=== PATIENT | female | born 1955 ===

== ENCOUNTER 2017-10-07 08:30 | Inpatient (IN) | payer OTHER ==
[2017-09-29 11:08] LABS: APPEARANCE,URINE CLEAR; BILIRUBIN, URINE NEGATIVE (NEGATIVE); COLOR,URINE PALE YELLOW; GLUCOSE, URINE (UA) NEGATIVE (NEGATIVE); KETONES,URINE NEGATIVE (NEGATIVE); LEUKOCYTE ESTERASE ,URINE 3+ (NEGATIVE); NITRITE,URINE NEGATIVE (NEGATIVE); PH,URINE 7 (4.5-8.0); PROTEIN,URINE NEGATIVE (NEGATIVE); UROBILINOGEN,URINE NORMAL MG/DL (0.0-1.0)
[2017-09-29 11:13] LABS: BASOPHILS % (AUTO) 1.5 % (0.0-2.0); EOSINOPHILS % (AUTO) 1.7 % (0.0-3.0); HEMATOCRIT 42.6 % (37.0-47.0); HEMOGLOBIN 13.5 G/DL (12.0-16.0); MEAN CORPUSCULAR VOLUME 88 FL (80-99); MONOCYTES % (AUTO) 7.5 % (1.0-10.0); NEUTROPHILS % (AUTO) 52.4 % (45.0-75.0); PLATELET COUNT 388 K/UL (150-450); RED BLOOD COUNT 4.85 M/UL (4.20-5.40); RED CELL DISTRIBUTION WIDTH 11.8 % (11.6-14.8); WHITE BLOOD COUNT 6.6 K/UL (4.8-10.8)
[2017-09-29 11:29] LABS: INR 0.9 (0.9-1.1)
[2017-09-29 11:35] LABS: ALANINE AMINOTRANSFERASE 32 U/L (12-78); ALBUMIN 4.2 G/DL (3.4-5.0); ALKALINE PHOSPHATASE 71 U/L (46-116); ANION GAP 9 mmol/L (5-15); ASPARTATE AMINO TRANSFERASE 25 U/L (15-37); BILIRUBIN,TOTAL 0.3 MG/DL (0.2-1.0); BLOOD UREA NITROGEN 13 mg/dL (7-18); CALCIUM 9.1 MG/DL (8.5-10.1); CARBON DIOXIDE 28 MMOL/L (21-32); CHLORIDE 103 MMOL/L (98-107); CREATININE 0.8 MG/DL (0.55-1.30); PHOSPHORUS 3.6 MG/DL (2.5-4.9); POTASSIUM 3.8 MMOL/L (3.5-5.1); SODIUM 140 MMOL/L (136-145)
--- NOTE | 2017-09-29 16:41 | Diagnostic Imaging Report ---
Indication: Cough Technique: 2 views of the chest Comparison: None Findings: Lungs and pleural spaces are clear. Heart size is normal. The bones are unremarkable Impression: Negative
[~2017-10-07] VITALS: Ht 162.6 cm; Wt 78.5 kg
[2017-10-07] VITALS (12 sets, daily range): BP systolic 87–124; BP diastolic 40–77
[~2017-10-07 08:30] MED LIST: AMBIEN10 MG ORAL; CALCIUM500 M3 PO; LEXAPRO10 MG ORAL; PERCOCET 10-321 EACH ORAL; ceFAZolin sod 1 GM in D5W 55 ML IV SCH; ceFAZolin sod 2 GM in D5W 110 ML IVPB ONE
[2017-10-07] MEDS ORDERED: Glycopyrrolate 0.2mg/ml 1ml Vial ONE (10:37)
[2017-10-07] MEDS ORDERED: fentaNYL 100 mcg/2 mL IV ONE ×2 (10:55→14:37)
[2017-10-07] MEDS ORDERED: Midazolam 2mg/2ml Inj ONE (10:56)
[2017-10-07] MEDS ORDERED: Lidocaine 1% MPF 10mg/ml 5ml ONE (11:04)
[2017-10-07] MEDS ORDERED: Zemuron 50mg/5ml Inj IV ONE (11:07)
--- NOTE | 2017-10-07 13:17 | Pre-Procedure Note/Attestation ---
Pre-Procedure Note/Attestation Complete Prior to Procedure Procedure Narrative: L45 R laminectomy/discectomy Indications for Procedure Pre-Operative Diagnosis: l45 hnp with RLE radiculopathy Attestation I attest that I discussed the nature of the procedure; its benefits; risks and complications; and alternatives (and the risks and benefits of such alternatives ), prior to the procedure, with the patient (or the patient's legal agricultural sales representative). I attest that, if there was a reasonable possibility of needing a blood transfusion, the patient (or the patient's legal agricultural sales representative) was given the [facility] standardized written summary, pursuant to the [place] Blood Safety Act ([place] Health and Safety Code # 1645, as amended). I attest that I re-evaluated the patient just prior to the surgery and that there has been no change in the patient's H&P, except as documented below: Renan Rios MD Oct 07, 2017 13:17
[2017-10-07] MEDS ORDERED: EPINEPHrine 1mg/1ml Amp ONE (13:42)
[2017-10-07] MEDS ORDERED: Thrombin 5000 units TOPIC ONE (13:42)
[2017-10-07] MEDS ORDERED: Vancomycin 1gm inj IVPB ONE (13:42)
[2017-10-07] MEDS ORDERED: Thrombin 5000 units spray kit TOPIC ONE (13:42)
[2017-10-07] MEDS ORDERED: Gelfoam Absorbable 1gm powder pkt TOPIC ONE (13:43)
[2017-10-07] MEDS ORDERED: Bupivacaine 0.5% Inj 30 ml vial INJ ONE (13:43)
[2017-10-07] MEDS ORDERED: Bacitracin 50000 Units Vial ONE (13:43)
[2017-10-07] MEDS ORDERED: Gelfoam Size TOPIC ONE (13:43)
[2017-10-07] MEDS ORDERED: LR 1000ml ONE (14:00)
[2017-10-07] MEDS ORDERED: Sterile Water Irrig 1000ml IRRIG ONE (14:00)
[2017-10-07] MEDS ORDERED: NS Irrig 1000ml ONE (14:00)
[2017-10-07] MEDS ORDERED: Acetaminophen (Non formulary) 100 ML IV ONE (14:45)
[2017-10-07] MEDS ORDERED: LR 1000ml 1,000 ML IVLG SCH (15:04)
--- NOTE | 2017-10-07 15:04 | Anethesia Preoperative Eval ---
Anesthesia Pre-op PMH/ROS General Date of Evaluation: Oct 07, 2017 Time of Evaluation: 13:50 Anesthesiologist: Lisa ASA Score: ASA 2 Mallampati Score Class I : Soft palate, uvula, fauces, pillars visible Class II: Soft palate, uvula, fauces visible Class III: Soft palate, base of uvula visible Class IV: Only hard plate visible Mallampati Classification: Class II Surgeon: Gabriel Diagnosis: Lumbar radiculopathy Surgical Procedure: L4-L5 decompression Anesthesia History: none Family History: no anesthesia problems Allergies: Coded Allergies: MORPHINE (Verified Allergy, Severe, 10/07/17) STOP BREATHING Medications: see eMAR Past Medical History Cardiovascular: Reports: HTN; Denies: CAD, AL, valve dz, arrhythmia, other Pulmonary: Denies: asthma, COPD, JUDY, other Gastrointestinal/Genitourinary: Reports: GERD; Denies: CRI, ESRD, other Neurologic/Psychiatric: Reports: depression/anxiety, other - chronic pain; Denies: dementia, CVA, TIA Endocrine: Denies: DM, hypothyroidism, steroids, other HEENT: Denies: cataract (L), cataract (R), glaucoma, LA JOLLA (L), LA JOLLA (R), other Hematology/Immune: Denies: anemia, DVT, bleeding disorder, other Musculoskeletal/Integumentary: Reports: DJD; Denies: OA, RA, DDD, edema, other PMH Narrative: as above PSxH Narrative: Laparoscopy, R knee arthroscopy and arthroplasty Anesthesia Pre-op Phys. Exam Physician Exam Last Vital Signs Date Time Temp Pulse Resp B/P (MAP) Pulse Ox O2 Delivery O2 Flow Rate FiO2 10/07/17 09:02 Room Air 10/07/17 09:01 97.4 55 18 124/77 (93) 97 97.4 Constitutional: NAD Neurologic: CN 2-12 intact Cardiovascular: RRR, no M/R/G Respiratory: CTA Gastrointestinal: S/NT/ND Airway Exam Mallampati Score: Class II MO: full Neck: flexible ROM: full Teeth: intact Dentures: no upper, no lower Anesthesia Pre-op A/P Labs see chart Studies Pre-op Studies: EKG - NSR Risk Assessment & Plan Assessment: ASA 2 Plan: GA with ETT prone position neuromonitoring Status Change Before Surgery: No Pre-Antibiotics Drug: Ancef 2 gr. Given Within 1 Hr of Incision: Yes Time Given: 14:38 Khanh Gonzalez MD Oct 07, 2017 15:04
[2017-10-07] MEDS ORDERED: Ketorolac 30mg Inj IV PRN (15:15)
[2017-10-07] MEDS ORDERED: fentaNYL 100 mcg/2 mL IV PRN (15:15)
[2017-10-07] MEDS ORDERED: Midazolam 2mg/2ml Inj IVP PRN (15:15)
[2017-10-07] MEDS ORDERED: DiphenhydrAMINE 50mg/ml Inj IVP PRN (15:15)
[2017-10-07] MEDS ORDERED: Meperidine 50mg/ml Inj(FOR RIGORS ONLY) IV PRN (15:15)
[2017-10-07] MEDS ORDERED: Milk of Magnesia 30ml Ud ORAL PRN (16:15)
[2017-10-07] MEDS ORDERED: Metoclopramide 10mg/2ml Inj IVP PRN (16:15)
--- NOTE | 2017-10-07 16:16 | Brief Operative Note ---
Immediate Post Operative Note Operative Note Pre-op Diagnosis: l45 hnp with RLE radiculopathy Procedure: l45 r alesha lami and microdiscectomy Post-op Diagnosis: same as pre-op Findings: consistent w/pre-op dx studies Surgeon: dave Anesthesiologist: mars Anesthesia: general Specimen: none Complications: none Condition: stable Fluids: 1000 Estimated Blood Loss: none Drains: none Implant(s) used?: No Renan Rios MD Oct 07, 2017 16:16
--- NOTE | 2017-10-07 16:32 | Immediate Post-Op Evaluation ---
Immediate Post-Op Evalulation Immediate Post-Op Evalulation Procedure: L4-L5 laminotomy with decompression Date of Evaluation: Oct 07, 2017 Time of Evaluation: 16:30 IV Fluids: 1200 Blood Products: none Estimated Blood Loss: <50 Urinary Output: 400` Blood Pressure Systolic: 100 Blood Pressure Diastolic: 52 Pulse Rate: 64 Respiratory Rate: 20 O2 Sat by Pulse Oximetry: 99 Temperature (Fahrenheit): 97.9 Pain Score (1-10): 2 Nausea: No Vomiting: No Complications none Patient Status: reacts, patent, none Hydration Status: adequate Khanh Gonzalez MD Oct 07, 2017 16:32
--- NOTE | 2017-10-07 17:24 | Diagnostic Imaging Report ---
Indication: Back pain Technique: Single Intraoperative fluoroscopic image from spinal surgery. Operating surgeon: Gabriel Total fluoroscopy time: 2.3 seconds Total fluoroscopy dose: 0.73 mGy Findings: Single intraoperative fluoroscopic image submitted for archival the PACS. A surgical instrument is noted projecting over the posterior aspect of the L5 vertebral body. Impression: Intraoperative fluoroscopic image from spinal surgery. Please see operative report.
[2017-10-07] MEDS: Docusate 100mg cap ORAL SCH (18:00)
[2017-10-07] MEDS: D5 1/2NS 1,000 ML IV SCH (18:37)
[2017-10-07] MEDS ORDERED: clonazePAM 0.5mg tab ORAL PRN (19:00)
[2017-10-07] MEDS ORDERED: oxyCODONE 5mg IR tab ORAL PRN (19:00)
[2017-10-07] MEDS ORDERED: Zolpidem 5mg tab ORAL PRN (19:00)
[2017-10-07] MEDS ORDERED: HYDROmorphone 1mg/ml Carpuject SUBQ SCH (19:11)
[2017-10-07] MEDS ORDERED: Chloraseptic Spray 20mL Bottle ORAL PRN (19:15)
--- NOTE | 2017-10-07 22:15 | Operative Note - Dictated ---
DATE OF OPERATION: 10/07/2017 SURGEON: Reann Rios M.D. MOTOR COACH SUPERVISOR: None. ANESTHESIOLOGIST: Khanh Gonzalez M.D. ANESTHESIA TYPE: General endotracheal anesthesia. PREOPERATIVE DIAGNOSIS: L4-L5 right-sided lower extremity radiculopathy secondary to disk herniation. POSTOPERATIVE DIAGNOSIS: L4-L5 right-sided lower extremity radiculopathy secondary to disk herniation. PROCEDURE: 1. Hemilaminectomy, medial facetectomy, foraminotomy, and right-sided micro diskectomy, L4-L5. 2. Use of operating microscope. 3. Neurodiagnostic monitoring. 4. Use of fluoroscope for localization purposes. ESTIMATED BLOOD LOSS: Minimal. COMPLICATIONS: None. FLUIDS: 1 liter. INDICATIONS: The patient is a very pleasant 62-year-old with fairly severe and intractable right lower extremity radiculopathic pain with a disk protrusion at L4-L5 and lateral recess stenosis. Pros, cons, risks, benefits of surgery were discussed. She elected to proceed after conservative care had failed. RISK NOTE: The patient was explained in detail risks and benefits of surgery to include but not be limited to those of bleeding, infection, damage to nerves or vessels or tendons, anesthetic risk, allergic reaction, aspiration, and possibly . The patient understood and wished to proceed. OPERATIVE PROCEDURE IN DETAIL: The patient was taken to the operating suite after general endotracheal anesthesia was induced. Wing catheter was placed. She was turned prone onto a radiolucent table. The back was prepped and draped in usual sterile fashion. [place] were placed at L4-L5 and radiographically confirmed with use of fluoroscope. At this point, the skin was infiltrated with lidocaine and epinephrine. The incision was carried out at L4-L5 spinous process. Right-sided subperiosteal dissection was carried out. The L4-L5 level was once again reconfirmed fluoroscopically. At this point, self-retaining retractor was put in place. The operating microscope was brought in. High-speed drill was used to drill out the leading edge of lamina of L4. The Kerrison punch helped to undermine and remove additional lamina. Ligamentum flavum was then removed in a piecemeal fashion with a curved curette. The pituitary and Kerrison punch allowed for removal of ligamentum flavum on the right side. Operating microscope then allowed visualization of the dural sac. The extensive neovascularization was encountered which was cauterized on the right side at L4-L5. The L5 nerve root was gently retracted medially. The disk was evaluated and noted to be quite prominent. The incision was made through the disk at L4-L5 using an #11 blade. The disk was then mobilized with use of down-pushing curettes, pituitaries, and dental probe/Cowan retractor. At this point, after multiple passes with a pituitary, it allowed for mobilization of the disk and removal of gross fragments. Copious intradiscal irrigation was performed until such point that free flow of the fluid allowed for removal of all loose disk fragments. At this point, once satisfied with the decompression and diskectomy, FloSeal was applied. Meticulous hemostasis was achieved. The fascia was repaired using #1 Vicryl, subcutaneous closure using 2-0 Vicryl. Dermabond was applied. Sterile dressing was applied. The patient was then turned onto her back, awakened, extubated, and transferred to recovery room in stable position. Renan Rios M.D. DR: Bisi JOB#: [id number] CC:
[2017-10-07] MEDS ORDERED: ceFAZolin sod 1 GM in D5W 55 ML IV SCH (22:30)
[2017-10-08] VITALS: BP 91/49
[2017-10-08] MEDS: HYDROmorphone 1mg/ml Carpuject SUBQ PRN ×2 (00:47→07:27)
[2017-10-08] MEDS: ceFAZolin sod 1 GM in D5W 55 ML IV SCH ×3 (00:57→16:30)
[2017-10-08 04:00] VITALS: BP 83/55
[2017-10-08] MEDS: D5 1/2NS 1,000 ML IV SCH ×2 (04:39→14:30)
--- NOTE | 2017-10-08 06:45 | Consultation ---
DATE OF CONSULTATION: 10/07/2017 NOTE: POOR AUDIO CONSULTING PHYSICIAN: Chon Lopez M.D. REFERRING PHYSICIAN: Renan Rios M.D. REASON FOR CONSULT: Acute pain consult. HISTORY OF PRESENT ILLNESS: Dear Dr. Renan Rios, Thank you kindly for consulting me to evaluate and render an opinion as to how to proceed in the management of the patient's acute postoperative lumbar spine pain after lumbar spine surgery. The patient is a 62-year-old woman with a long history of work-related injury pain. She is followed by outpatient pain doctor, for her chronic pain symptom and opioid dependence. She uses 3 Percocet daily and also uses p.r.n. Klonopin for her chronic anxiety. After today's decompressive lumbar spine surgery, the patient complained of severe pain. I saw the patient at bedside with her . You consulted me to help improve the patient's pain complaints postoperatively in the context of her chronic pain syndrome and opioid dependence. I performed a detailed history and physical examination. I spent over 75 minutes in consultation with an additional 30 minutes in medical record review. I reviewed multiple records from the patient's medical chart including utilization review and surgical authorization by her insurance carrier, [employer] worker's [employer]. I reviewed multiple preoperative history and physical examination reports by Dr. Ge dated 09/29/2017 along with diagnostic testing, laboratory studies, chest x-ray, and 12-lead EKG. I reviewed multiple records from today's date of surgery at [facility] from 10/07/2017 including consent for surgical treatment, consent for anesthesia, consent for blood products, medication administration record, medication reconciliation order form, PACU record, PACU orders, anesthesia record, pre and post anesthesia evaluation record, initial nursing assessment, 24-hour medical and surgical flow sheet, guidelines for prophylactic antibiotics, guidelines for DVT prophylaxis, postoperative spine surgical orders, and postoperative surgery report by Dr. Rios. PAST MEDICAL HISTORY: 1. Acute postoperative lumbar spine pain, status post lumbar spine surgery by Dr. Renan Rios in 10/2017. 2. Work-related injury. 3. Chronic lumbar spine pain with right lower extremity radicular symptoms. 4. Chronic right knee pain, status post multiple right knee surgeries. 5. Migraine headaches. 6. Childhood diseases including chicken pox and measles. Childhood asthma resolved. 7. Anxiety, depression. 8. Anemia. 9. Insomnia. 10. GERD. PAST SURGICAL HISTORY: Multiple right knee surgeries including knee replacement, tubal ligation, carpal tunnel surgery, right De Quervain's release, and tonsillectomy. ALLERGIES: Morphine causes hypotension. MEDICATIONS: At home, Lexapro 10 mg daily, omeprazole 20 mg daily, Ambien 10 mg at bedtime, clonazepam 0.5 mg p.r.n., and Percocet 10/325 mg one tablet 3 times a day. FAMILY HISTORY: Diabetes and hypertension. SOCIAL HISTORY: The patient is accompanied at the bedside by her . She denies tobacco, alcohol, or illicit drug use. REVIEW OF SYSTEMS: Per Dr. Ge. PHYSICAL EXAMINATION: VITAL SIGNS: Age 62, height 5 feet 4 inches, weight 154 pounds, and body mass index 26. Vital signs show afebrile, pulse 74, respirations 18, blood pressure 110/60, and oxygen saturation 99% on supplemental oxygen. HEENT: Normocephalic and atraumatic. Extraocular muscles intact. Pupils are equal, round, and accommodative. CHEST: Clear to auscultation. HEART: Regular rate and rhythm. ABDOMEN: Soft. Positive bowel sounds. MUSCULOSKELETAL: Lumbar spine with dry dressing. Pain with range of motion. Moving all extremities x4 with 5/5 dorsiflexion and 5/5 plantar flexion in bilateral lower extremities. BREASTS: Deferred. GENITOURINARY: Deferred. NEUROLOGIC: Detailed neurologic exam per Dr. Rios. LABORATORY AND DIAGNOSTIC DATA: Laboratory studies from 09/29/2017 shows urinalysis with 3+ leukocyte esterase, negative nitrite, occasional bacteria. Sodium 140, potassium 3.8, chloride 103, bicarbonate 28, BUN 13, creatinine 0.8, and glucose 96. Calcium 9.1. Phosphorus 3.6. Magnesium 2.0. Total bilirubin 0.3. AST 25, ALT 32. Total protein 8.3. Albumin 4.2. Alkaline phosphatase 71. White count 7, hematocrit 43, and platelets 390. INR 0.9 and PTT 32. A 12-lead EKG shows sinus bradycardia, ventricular rate 51. No evidence for acute cardiac ischemia. Preoperative chest x-ray shows negative chest exam. IMPRESSION: 1. Acute postoperative lumbar spine pain, status post lumbar spine surgery by Dr. Renan Rios in 10/2017. 2. Work-related injury. 3. Chronic lumbar spine pain with right lower extremity radicular symptoms. 4. Chronic right knee pain status post multiple right knee surgeries. 5. Migraine headaches. 6. Childhood diseases including chicken pox and measles. Childhood asthma resolved. 7. Anxiety, depression. 8. Anemia. 9. Insomnia. 10. Gastroesophageal reflux disease. TREATMENT RECOMMENDATIONS: The patient sees outpatient pain doctor, on a monthly basis for her chronic opioid dependent pain syndrome. She uses 3 Percocet daily. She states that she has not used higher doses even one half or two tablets at a time. Therefore, I will keep her on the 10 mg dose of oxycodone instant release. However, I will increase the frequency to q.3 h. p.r.n. for moderate pain. With her opioid usage probably, I have also selected a breakthrough dose of Dilaudid 1 mg subcutaneously every three hours p.r.n. for severe breakthrough pain. I have spoken with the pharmacist to expedite an immediate dosing now as a catch-up dose. I would then alternate the oxycodone and Dilaudid for the next 12 hours until the patient is more comfortable. I have also made available Klonopin 0.5 mg q.6 h. in case of any anxiety exacerbations. I will restart the patient's Lexapro for mood stabilization. I have also ordered a dose of Fioricet one tablet orally every 8 hours in case of any headache complaint. The patient does have a history of migraine headaches. I will place the patient on her proton pump inhibitor to help with GI ulcer prophylaxis and I have also ordered p.r.n. dose of Mylanta 30 mL q.6 h. in case of any GERD symptom exacerbation. I have ordered Zofran 4 mg intravenously every 4 hours p.r.n. in case of nausea symptoms. I have also ordered Benadryl 25 mg orally q.6 h. in case of any itching complaints. Suze is restarted, which she uses preoperatively for her insomnia symptoms. I have ordered incentive spirometer to encourage good pulmonary toilet. I will defer DVT prophylaxis to the surgeon. The patient already has an ample supply of Percocet for home usage. Chon Lopez M.D. DR: DARLING JOB#: [id number] CC:
[2017-10-08 08:00] VITALS: BP 95/60
[2017-10-08] MEDS: Docusate 100mg cap ORAL SCH (08:33)
--- NOTE | 2017-10-08 08:34 | Orthopedic Spine Progress Note ---
Ortho Spine - Progress Note Subjective Symptoms: c/o post-op back pain, improved Objective Vital Signs: Last 24 Hour Vital Signs Date Time Temp Pulse Resp B/P (MAP) Pulse Ox O2 Delivery O2 Flow Rate FiO2 10/08/17 08:00 97.9 73 18 95/60 (72) 99 97.9 10/08/17 07:57 97.9 10/08/17 04:00 98.4 57 18 83/55 (64) 99 98.4 10/08/17 00:00 97.8 53 18 91/49 (63) 99 97.8 10/07/17 20:00 97.8 53 18 104/57 (73) 100 97.8 53 10/07/17 19:02 97.4 52 18 105/56 (72) 99 97.4 10/07/17 18:09 Nasal Cannula 3.0 10/07/17 18:00 97.6 74 18 99/61 (74) 99 97.6 10/07/17 17:49 97.6 52 15 110/60 100 Nasal Cannula 3 97.6 10/07/17 17:45 97.7 10/07/17 17:25 55 14 106/63 100 Nasal Cannula 3 10/07/17 17:02 97.8 54 17 113/61 100 Nasal Cannula 3 97.8 10/07/17 17:02 97.6 10/07/17 16:50 53 16 106/57 100 Nasal Cannula 3 10/07/17 16:40 56 16 87/49 100 Nasal Cannula 3 10/07/17 16:32 208.2 64 20 99 10/07/17 16:30 60 18 89/52 100 Simple Mask 6 10/07/17 16:25 61 17 88/41 100 Simple Mask 6 10/07/17 16:20 97.6 68 20 94/48 100 Simple Mask 6 97.6 10/07/17 09:02 Room Air 10/07/17 09:01 97.4 55 18 124/77 (93) 97 97.4 I&O: Intake and Output 10/07/17 10/08/17 19:00 07:00 Intake Total 2400 ml 420 ml Output Total 860 ml 150 ml Balance 1540 ml 270 ml Intake Oral 420 ml IV Total 2400 ml Output Urine Total 800 ml 150 ml Estimated Blood Loss 60 ml # Voids 1 3 Wound: clean, intact Drains: none Neuro Status: stable Assessment Procedure Performed: l45 r alesha lami and microdiscectomy Plan Plan: PT, pain management, discharge to home - this afternoon if cleared by pt Renan Rios MD Oct 08, 2017 08:34
--- NOTE | 2017-10-08 09:04 | 48 Hour Post Anesthesia Eval ---
Post Anesthesia Evaluation Procedure: L4-L5 laminotomy with decompression Date of Evaluation: Oct 08, 2017 Time of Evaluation: 09:03 Blood Pressure Systolic: 95 0: 60 Pulse Rate: 73 Respiratory Rate: 18 Temperature (Fahrenheit): 97.9 O2 Sat by Pulse Oximetry: 99 Airway: patent Nausea: No Vomiting: No Pain Intensity: 3 Hydration Status: adequate Cardiopulmonary Status: Stable Mental Status/LOC: patient returned to baseline Follow-up Care/Observations: 0 Post-Anesthesia Complications: 0 Follow-up care needed: N/A Tej Alcaraz MD Oct 08, 2017 09:04
[2017-10-08 12:00] VITALS: BP 97/62
--- NOTE | 2017-10-08 13:02 | History and Physical ---
History of Present Illness General Date patient seen: Oct 08, 2017 Present Illness HPI 62 year old female with hx of depression, anxiety presented with CC of L4-5 hnp with RLE radiculopathy and underwent L4-5 R alesha lami and microdiscectomy. she is admitted to medical floor for post-op care. Allergies: Coded Allergies: MORPHINE (Verified Allergy, Severe, 10/07/17) STOP BREATHING Medication History Scheduled Escitalopram Oxalate* (Lexapro*), 10 MG ORAL DAILY, (Reported) Scheduled PRN Oxycodone Hcl/Acetaminophen 10-325 Mg Tablet (Percocet 10-325 Mg Tablet*), 1 TAB ORAL Q6H PRN for For Pain, (Reported) Zolpidem Tartrate* (Ambien*), 10 MG ORAL BEDTIME PRN for Insomnia, (Reported) Miscellaneous Medications Calcium Carbonate (Calcium), 500 MG PO, (Reported) Patient History Healthcare decision maker LALO RILEY - Resuscitation status Full Code Advanced Directive on File Past Medical/Surgical History Past Medical/Surgical History: (1) Depression (2) Anxiety Review of Systems All Other Systems: negative except mentioned in HPI Physical Exam General Appearance: WD/WN Lines, tubes and drains: peripheral HEENT: normocephalic, atraumatic Neck: non-tender, supple Respiratory/Chest: chest wall non-tender, lungs clear Cardiovascular/Chest: normal peripheral pulses, normal rate Abdomen: normal bowel sounds, non tender Genitourinary/Rectal: normal genital exam Last 24 Hour Vital Signs Date Time Temp Pulse Resp B/P (MAP) Pulse Ox O2 Delivery O2 Flow Rate FiO2 10/08/17 09:04 208.2 73 18 99 10/08/17 09:00 Room Air 10/08/17 08:00 97.9 73 18 95/60 (72) 99 97.9 10/08/17 07:57 97.9 10/08/17 04:00 98.4 57 18 83/55 (64) 99 98.4 10/08/17 00:00 97.8 53 18 91/49 (63) 99 97.8 10/07/17 20:00 97.8 53 18 104/57 (73) 100 97.8 53 10/07/17 19:02 97.4 52 18 105/56 (72) 99 97.4 10/07/17 18:09 Nasal Cannula 3.0 10/07/17 18:00 97.6 74 18 99/61 (74) 99 97.6 10/07/17 17:49 97.6 52 15 110/60 100 Nasal Cannula 3 97.6 10/07/17 17:45 97.7 10/07/17 17:25 55 14 106/63 100 Nasal Cannula 3 10/07/17 17:02 97.8 54 17 113/61 100 Nasal Cannula 3 97.8 10/07/17 17:02 97.6 10/07/17 16:50 53 16 106/57 100 Nasal Cannula 3 10/07/17 16:40 56 16 87/49 100 Nasal Cannula 3 10/07/17 16:32 208.2 64 20 99 10/07/17 16:30 60 18 89/52 100 Simple Mask 6 10/07/17 16:25 61 17 88/41 100 Simple Mask 6 10/07/17 16:20 97.6 68 20 94/48 100 Simple Mask 6 97.6 Intake and Output 10/07/17 10/08/17 19:00 07:00 Intake Total 2400 ml 420 ml Output Total 860 ml 150 ml Balance 1540 ml 270 ml Intake Oral 420 ml IV Total 2400 ml Output Urine Total 800 ml 150 ml Estimated Blood Loss 60 ml # Voids 1 3 Height (Feet): 5 Height (Inches): 4.00 Weight (Pounds): 173 Medications Current Medications Medications (Trade) Dose Ordered Sig/Alphonso Route PRN Reason Start Time Stop Time Status Last Admin Dose Admin Acetaminophen (Tylenol) 650 mg Q4H PRN ORAL headache or temp>101 10/07/17 16:15 11/06/17 16:14 Acetaminophen/ Butalbital/ Caffeine (Fioricet) 1 tab Q8H PRN ORAL headache 10/07/17 19:00 11/06/17 18:59 Al Hydroxide/Mg Hydroxide (Mylanta) 30 ml Q6H PRN ORAL gerd 10/07/17 19:00 11/06/17 18:59 Cefazolin Sodium 1 gm/Dextrose 55 ml @ 110 mls/hr Q8H IV 10/08/17 00:30 10/08/17 16:59 10/08/17 08:33 Clonazepam (KlonoPIN) 0.5 mg Q6H PRN ORAL For Anxiety 10/07/17 19:00 10/14/17 18:59 Clonidine HCl (Catapres Tab) 0.1 mg Q8HR PRN ORAL For High Blood Pressure 10/07/17 19:00 11/06/17 18:59 Dextrose/Sodium Chloride 1,000 ml @ 100 mls/hr Q10H IV 10/07/17 18:30 11/06/17 18:29 10/08/17 04:39 Diphenhydramine HCl (Benadryl) 25 mg Q6H PRN ORAL Itching 10/07/17 19:00 11/06/17 18:59 Docusate Sodium (Colace) 100 mg TWICE A DAY ORAL 10/07/17 18:00 11/06/17 17:59 10/08/17 08:33 Escitalopram Oxalate (Lexapro) 10 mg DAILY ORAL 10/08/17 09:00 11/07/17 08:59 10/08/17 08:33 Hydromorphone HCl (Dilaudid) 1 mg Q3HR PRN SUBQ Severe Breakthru Pain (>7) 10/07/17 19:00 10/14/17 18:59 10/08/17 07:27 Magnesium Hydroxide (Mom) 30 ml QIDPRN PRN ORAL Constipation 10/07/17 16:15 11/06/17 16:14 Ondansetron HCl (Zofran) 4 mg Q4HR PRN IVP Nausea & Vomiting 10/07/17 19:00 11/06/17 18:59 10/08/17 07:27 Oxycodone HCl (Roxicodone) 10 mg Q3HR PRN ORAL Moderate Breakthru Pain (5-7) 10/07/17 19:00 10/14/17 18:59 10/08/17 12:50 Pantoprazole (Protonix) 40 mg BEDTIME ORAL 10/07/17 21:00 11/06/17 20:59 10/07/17 20:49 Phenol/Menthol (Chloraseptic) 1 spray Q3H PRN ORAL sore throat 10/07/17 19:15 11/06/17 19:14 Zolpidem Tartrate (Ambien) 10 mg HSPRN PRN ORAL Insomnia 10/07/17 19:00 10/14/17 18:59 Assessment/Plan Problem List: (1) Herniated nucleus pulposus, L4-5 right ICD Codes: M51.26 - Other intervertebral disc displacement, lumbar region SNOMED: 17154535 (2) Anxiety ICD Codes: F41.9 - Anxiety disorder, unspecified SNOMED: 31526661 (3) Depression ICD Codes: F32.9 - Major depressive disorder, single episode, unspecified SNOMED: 33074875 Assessment/Plan post op care pain management continue anxiolytic and antidepressants symptomatic treatment pt/ot dvt prophylaxis Toyin Rizzo MD Oct 08, 2017 13:02
[2017-10-08] MEDS ORDERED: HYDROmorphone 1mg/ml Carpuject SUBQ SCH (14:21)
[2017-10-08] MEDS ORDERED: oxyCODONE 5mg IR tab ORAL PRN (14:45)
[2017-10-08] MEDS ORDERED: PERCOCET 10-321 EACH ORAL (15:53)
[2017-10-08 16:00] VITALS: BP 102/65
[2017-10-08] MEDS ORDERED: HYDROmorphone 1mg/ml Carpuject SUBQ PRN (17:30)
--- NOTE | 2017-10-08 22:30 | Progress Note ---
DATE: 10/08/2017 ACUTE PAIN MANAGEMENT PHYSICIAN PROGRESS NOTE MEDICATIONS: Medication administration record reviewed. Medications include IV fluids, Colace, Protonix, Lexapro, and antibiotics. P.r.n. medications include Tylenol, milk of magnesia, Ambien, Benadryl, Catapres, Mylanta, Zofran, Fioricet, Klonopin, Dilaudid, Roxicodone, and Chloraseptic spray. LABORATORY STUDIES: No interval laboratory studies. Vital signs within normal limits, afebrile, pulse 58, respirations 18, blood pressure 97/62, and oxygen saturation 99% on room air. I saw the patient at the bedside with her and the charge nurse, Silvia FERRARA. I spoke with the nurse, JOSIAS Mehta, and the surgeon, Dr. Rios. The surgeon saw the patient earlier this morning and was pleased with her condition in neurologic outcome. I spoke with the physical therapist, Jhonatan, who stated the patient has been cleared from a physical standpoint for a discharge trial home. A raised toilet seat was provided at the patient's request. The patient is tolerating food. She denies any shortness of breath or chest pain. She still has a persistent and chronic right knee pain. This is not unexpected, as she has had multiple right knee surgeries in the past. The patient has some Percocet already at home, but because of her chronic outpatient pain management doctor who sees her and worker's compensation pharmacy restrictions, she believes she will run out of her Percocet before her new prescription is available. The patient requested for an extra 30 tablets, which I was agreeable to provide to help bridge her over after her lumbar spine surgery in light of her chronic opioid dependent pain syndrome. My visit was witnessed throughout by the charge nurse Silvia FERRARA today and the patient's . I did encourage continued use of incentive spirometer. The lumbar spine dressing appears clean and dry. The patient is sitting comfortably in a chair and denies any shortness of breath or chest pain. I agree with the discharge trial home today. Chon Lopez M.D. DR: DARLING JOB#: [id number] CC:
--- NOTE | 2017-10-09 06:56 | Discharge Summary ---
Discharge Summary Discharge Summary _ DATE OF ADMISSION: 10/07/2017 DATE OF DISCHARGE: 10/20/2017 CONSULTANTS: Dr. Chon Rizzo BRIEF HOSPITAL COURSE: Patient is a 62-year-old female, with long-standing history of work-related injury pain. She was followed by outpatient pain doctor for her chronic pain symptoms and opioid dependence. She was admitted and underwent decompressive lumbar spine surgery. She tolerated procedure well and postoperatively was seen by pain management doctor and system support analyst. She was taking 3 Percocets and Klonopin daily prior to surgery. Postoperatively , she was given oxycodone 10 mg IR for moderate pain. She was placed on Dilaudid 1 mg subcutaneous for severe breakthrough pain. She was given Klonopin prn anxiety and was restarted on Lexapro for mood stabilization. She was placed on SCDs for DVT prophylaxis. She was encouraged use of incentive spirometry. She was seen by physical and occupational therapist. She was ambulating well and tolerating diet well. She had good pain control. Lumbar spine dressing clean and dry. She was eventually cleared for discharge home. FINAL DIAGNOSES: L4-L5 right-sided lower extremity radiculopathy secondary to disc herniation Status post hemilaminectomy, medial facetectomy, foraminotomy and right-sided microdiscectomy, L4-L5 DISPOSITION: Patient was discharged home. DISCHARGE MEDICATIONS: Refer to Discharge Medication List. DISCHARGE INSTRUCTIONS: Follow up within a week. I have been assigned to dictate discharge summary on this account, and I was not involved in the patient's management. Krystal Suh NP Oct 09, 2017 06:56
== END 2017-10-08 16:50 | disposition home or self-care (01) | DRG 519 ==
LOC: SDSOVERFLO 08:30 → 3E 17:56
PROC: 01NB0ZZ Release Lumbar Nerve, Open Approach (ICD-10-PCS; principal; 2017-10-07 12:30)
PROC: 0SB20ZZ Excision of Lumbar Vertebral Disc, Open Approach (ICD-10-PCS; principal; 2017-10-07 12:30)
DX: M51.16 Intervertebral disc disorders with radiculopathy, lumbar region (principal); F11.20 Opioid dependence, uncomplicated; F41.9 Anxiety disorder, unspecified; F32.9 Major depressive disorder, single episode, unspecified; G89.4 Chronic pain syndrome
CPT/HCPCS: 36415; 71046; 72020; 76001; 80053; 81003; 83735; 84100; 85025; 85610; 85730; 86850; 86900; 86901; 87081; 94003; 94150; J2250; J2405